=== PATIENT | female | born 1995 | race Caucasian/White ===

== ENCOUNTER 2023-10-17 12:41 | Emergency (ER) | payer SELFPAY ==
[~2023-10-17] VITALS: Ht 157.5 cm; Wt 54.4 kg
[2023-10-17 12:45] VITALS: BP_SYST 135; PULSE 109; RESP 20; TEMP 98.3; O2SAT 98
[2023-10-17 13:25] VITALS: BP_SYST 135; PULSE 109; RESP 20; TEMP 98.3; O2SAT 98
== END 2023-10-17 13:24 ==
LOC: SED 12:41
DX: S46.812A Strain of other muscles, fascia and tendons at shoulder and upper arm level, left arm, initial encounter (principal); Y04.0XXA Assault by unarmed brawl or fight, initial encounter; Y93.89 Activity, other specified; Y92.89 Other specified places as the place of occurrence of the external cause; Y99.8 Other external cause status
CPT/HCPCS: 99283